=== PATIENT | female | born 1935 | race Caucasian/White ===

== ENCOUNTER → 2019-04-21 | Outpatient (REF) | payer OTHER | LOC: M LAB LCGH 18:21 | PROVIDERS: ATTEND Surgery | DX: K63.5 Polyp of colon (principal) ==

== ENCOUNTER → 2022-12-04 | Outpatient (RCR) | payer MEDICARE | LOC: M ONCR 13:43 | PROVIDERS: ATTEND General Practice | DX: C44.321 Squamous cell carcinoma of skin of nose (principal) ==

== ENCOUNTER → 2023-01-04 | Outpatient (RCR) | payer MEDICARE | LOC: M ONCR 12-05 10:47 | PROVIDERS: ATTEND General Practice | DX: Z51.0 Encounter for antineoplastic radiation therapy (principal); C44.321 Squamous cell carcinoma of skin of nose ==

== ENCOUNTER → 2023-03-08 | Outpatient (CLI) | payer MEDICARE | LOC: M ONCR 15:06 | PROVIDERS: ATTEND General Practice | DX: C44.321 Squamous cell carcinoma of skin of nose (principal); Z92.3 Personal history of irradiation ==

== ENCOUNTER → 2023-09-11 | Outpatient (CLI) | payer MEDICARE | LOC: M ONCR 12:46 | PROVIDERS: ATTEND General Practice | DX: Z08 Encounter for follow-up examination after completed treatment for malignant neoplasm (principal); Z85.828 Personal history of other malignant neoplasm of skin; Z71.2 Person consulting for explanation of examination or test findings; Z92.3 Personal history of irradiation ==